=== PATIENT | male | born 1985 | race Caucasian/White ===

== ENCOUNTER 2023-03-19 13:01 | Emergency (ER) | payer BC, SELFPAY ==
--- NOTE | ~2023-03-19 | XR_ITS ---
EXAMINATION: XR finger 2nd LT min 2V DATE: 03/19/2023 13:47 INDICATION: Injury of left hand second digit. TECHNIQUE: 3 views of left hand second digit were obtained. COMPARISON: None. FINDINGS: There is an open oblique fracture of tuft of second distal phalanx. The distal fracture fra gment demonstrates 4 mm palmar displacement, 1 mm ulnar displacement, and shortening. 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 IMPRESSION: 1. Open oblique fracture of tuft of second distal phalanx. Reviewed, dictated and finalized at location A.
[2023-03-19 13:21] VITALS: BP 157/90; PULSE 100; RESP 19; TEMP 36.3; O2SAT 95
--- NOTE | 2023-03-19 14:24 | ED.WOUNDLAC ---
HPI - Wound/Laceration General Chief Complaint: Wound/Laceration <Tala Segundo PA-C - Last Filed: 03/19/23 15:19> Stated Complaint: finger laceration <Tala Segundo PA-C - Last Filed: 03/19/23 15:19> Time Seen by Provider: 03/19/23 13:40 <Tala Segundo PA-C - Last Filed: 03/19/23 15:19> Source: patient <Tala Segundo PA-C - Last Filed: 03/19/23 15:19> Mode of arrival: ambulatory <Tala Segundo PA-C - Last Filed: 03/19/23 15:19> Limitations: no limitations <Tala Segundo PA-C - Last Filed: 03/19/23 15:19> History of Present Illness HPI narrative: This is a 37 year old male that presents to the ER for an injury to his left hand. Reports injury sustained to the index finger from a sliding door. He is up to date on tetanus. Denies decreased ROM or numbness. <Tala Segundo PA-C - Last Filed: 03/19/23 15:19> Related Data Allergies/Adverse Reactions: Allergies Allergy/AdvReac Type Severity Reaction Status Date / Time cefaclor [From [facility]] Allergy Hives Verified 03/19/23 13:24 <Tala Segundo PA-C - Last Filed: 03/19/23 15:19> Review of Systems Review of Systems: CONSTITUTIONAL: Denies fever SKIN: Reports laceration MUSCULOSKELETAL: Reports joint pain, and myalgia. NEUROLOGIC: Denies numbness <Tala Segundo PA-C - Last Filed: 03/19/23 15:19> All systems reviewed & are unremarkable except as noted in HPI and below <Tala Segundo PA-C - Last Filed: 03/19/23 15:19> [facility] Past Medical History Medical History: Medical History (Updated 03/19/23 @ 15:11 by Tala Segundo PA-C) History of asthma <Tala Segundo PA-C - Last Filed: 03/19/23 15:19> Social History Social History: Social History (Updated 03/19/23 @ 14:29 by Tala Segundo PA-C) Smoking status: Never smoker <Tala Segundo PA-C - Last Filed: 03/19/23 15:19> Exam Narrative: GENERAL: Well-appearing, well-nourished, and in no acute distress. HEAD: Normocephalic, atraumatic. EYES: EOMI. EXTREMITIES: Normal range of motion. Left 2nd finger with 1.5cm linear laceration to the distal portion of the nail and into the skin. Normal sensation. Normal capillary refill SKIN: Warm, dry, no rash. NEURO: No focal deficits. Alert and oriented x3. PSYCH: Normal mood and affect <Tala Segundo PA-C - Last Filed: 03/19/23 15:19> Course Course Emergency Course: Patient and family in agreement with plan. Will report directly to [facility] ER <Tala Segundo PA-C - Last Filed: 03/19/23 15:19> WELLNESS CONSULTANT/PA Physician Supervision For this patient encounter, I reviewed the WELLNESS CONSULTANT or PA documentation, treatment plan, and medical decision making; and I had [id number] time with this patient. <Navdeep Pruitt MD - Last Filed: 03/19/23 19:01> Consultations Consultation #1: Dr. Murdock, [facility] hand surgery, recommends transfer to the ER <Tala Segundo PA-C - Last Filed: 03/19/23 15:19> Date: 03/19/23 <Tala Segundo PA-C - Last Filed: 03/19/23 15:19> Consultation #2: Dr. Coppola accepts transfer to the ER at [facility] <Tala Segundo PA-C - Last Filed: 03/19/23 15:19> Date: 03/19/23 <Tala Segundo PA-C - Last Filed: 03/19/23 15:19> Vital Signs Vital signs: Vital Signs Temperature 97.4 F L 03/19/23 13:21 Pulse Rate 100 03/19/23 13:21 Respiratory Rate 19 03/19/23 13:21 Blood Pressure 157/90 H 03/19/23 13:21 Pulse Oximetry 95 03/19/23 13:21 Oxygen Delivery Room Air 03/19/23 13:21 Temperature 97.4 F L 03/19/23 13:21 Pulse Rate 88 03/19/23 14:59 Respiratory Rate 16 03/19/23 14:59 Blood Pressure 149/90 H 03/19/23 14:59 Pulse Oximetry 98 03/19/23 14:59 Oxygen Delivery Room Air 03/19/23 13:21 <Tala Segundo PA-C - Last Filed: 03/19/23 15:19> Vital Signs Temperature 97.4 F L 03/19/23 13:21 Pulse Rate 100 03/19/23 13:21 Respiratory Rate 19 03/19/23 13:21 Blood Pressure 157/90 H
[2023-03-19 14:59] VITALS: BP 149/90; PULSE 88; RESP 16; O2SAT 98
--- NOTE | 2023-03-19 15:03 | PC.NURSE ---
PT TO U VIA PRIVATE CAR, DOES NOT FEEL EMS IS WORTH IT
== END 2023-03-19 15:15 | disposition short-term general hospital (02) ==
PROVIDERS: Emergency Provider Physician Assistant; PCP Family Medicine
DX: S62.631B Displaced fracture of distal phalanx of left index finger, initial encounter for open fracture (principal); J45.909 Unspecified asthma, uncomplicated; W26.8XXA Contact with other sharp object(s), not elsewhere classified, initial encounter
CPT/HCPCS: 73140; 99283